=== PATIENT | female | born 1935 | race Caucasian/White ===

== ENCOUNTER → 2021-11-19 | Outpatient (CLI) | payer OTHER | LOC: RAD 13:24 | PROVIDERS: ATTEND Internal Medicine | DX: J44.9 Chronic obstructive pulmonary disease, unspecified (principal); I25.10 Atherosclerotic heart disease of native coronary artery without angina pectoris; R91.8 Other nonspecific abnormal finding of lung field; M41.34 Thoracogenic scoliosis, thoracic region ==

== ENCOUNTER 2021-12-16 15:33 | Emergency (ER) | payer OTHER ==
[~2021-12-16] VITALS: Ht 160 cm; Wt 56.7 kg
--- NOTE | ~2021-12-16 | EMS ---
[address] [address] EMS Patient Care Report Name: JACKIE HIGH Room #: DEP SHERINE Marshall#: [id number] Admission: 12/16/21 Attend Phys: Discharge: 12/16/21 Date of : 39 Report #: [id number] THIS REPORT FOR: //name// Report Transmitted: 12/18/2021 15:57 EMS Care Summary [place], [place]/[facility] Incident [id number] @ 12/16/2021 15:05 Incident Location [address] [place] [address] Patient JACKIE HIGH Female, 86 Years 1935 Patient Address [address] [place] [address] Patient History Chronic Obstructive Pulmonary Disease (COPD),Hypertension (HTN),None Reported, Patient Allergies No known allergies,Penicillin allergy, Patient Medications None Reported, Plavix, Chief Complaint Left upper arm Pain Disposition Transported No Lights/[place] Reason Falls Transported To [facility] Narrative Truck Captain on the scene stated they came to do a life assist after Pt slipped off her walker that rolls around and landed on the ground. Pt is not complaining of any pain at this time but is C/O pain in her left upper arm were [address] [address] EMS Patient Care Report Name: JACKIE HIGH Room #: DEP ER Rolando#: [id number] Admission: 12/16/21 Attend Phys: Discharge: 12/16/21 Date of : 39 Report #: [id number] she tripped over a rug landed on her left arm over a week ago. Pt stated she is having slight pain when she moves her arm or attempts to brain picker anything at all and rated her pain at a 2/10 that comes and goes. Pt is requesting transport to [facility] for further care , tx and evaluation of left upper arm pain were she injured a week ago. Pt is with no other complaints notd and is a GCS 15. Pt found sitting in a chair in her home with Truck 15 crew with Pt, Pt is with no signs of distress noted. Pt is post fall x 1 week and today she slide off her rolling walker seat and ended up on the ground and Pt is with no complaints noted from that injury. Pt is wanting transported to [facility] for evaluation of Left arm pain she has from a fall over a week ago and she is having pain when she lifts up something and moves it a certain way. Pt is with good ROM noted in left arm, good sensation , strong radial pulse and no deformity noted on inspection / palpation of area by EMS. Pt is a GCS 15 with no other complaint's noted by EMS on eval with Pt. Pt is transported to [facility] for further tx , care of left upper arm pain she hurt a week ago, no changes during transport and Pt received by RN in ER. Initial Vitals @15:25P: 74,R: 18,BP: 169/71,Pain: 2/10,GCS: 15,SpO2: 98,Revised Trauma: 12, @15:20P: 75,R: 18,BP: 185/74,Pain: 2/10,GCS: 15,SpO2: 98,Revised Trauma: 12, Assessments @15:12MENTAL:Person Oriented,Time Oriented,Place Oriented,Event Oriented,SKIN:HEENT:Head/Face: No Abnormalities,Neck/Airway: No Abnormalities,LUNG SOUNDS:General: No Abnormalities,ABDOMEN:General: No Abnormalities,PELVIS//GI:No Abnormalities,EXTREMITIES:Left Arm: Weakness,Left Arm: Other,Capillary Refill: Left Upper: < 2 Sec,Right Arm: No Abnormalities,Left Leg: No Abnormalities,Right Leg: No Abnormalities,PULSE:Radial: 2+ Normal,NEURO:@15:27MENTAL:Person Oriented,Place Oriented,Time Oriented,Event Oriented,SKIN:HEENT:Head/Face: No Abnormalities,Neck/Airway: No Abnormalities,LUNG SOUNDS:ABDOMEN:PELVIS//GI:No Abnormalities,EXTREMITIES:Left Arm: Weakness,Left Arm: Other,Capillary Refill: Left Upper: < 2 Sec,Right Arm: No Abnormalities,Left Leg: No Abnormalities,Right Leg: No Abnormalities,PULSE:Radial: 2+ Normal,NEURO:No Abnormalities, Impression Injury of Shoulder or Upper Arm Procedures @15:12 ALS Assessment Response: UnchangedSucceeded Timeline [address] [address] EMS Patient Care Report Name: ANILAJACKIE SUE Room #: DEP SHERINE Marshall#: [id number] Admission: 12/16/21 Attend Phys: Discharge: 12/16/21 Date of : 39 Report #: [id number] 14:53,Call Received 14:53,Dispatch Notified 15:05,Dispatched 15:06,En Route 15:08,On Scene 15:12,At Patient 15:12,ALS Assessment,Response: UnchangedSucceeded, 15:20,BP: 185/74 M,PULSE: 75,RR: 18 R,SPO2: 98 Ox,ETCO2: ,BG: ,PAIN: 2,GCS: 15, 15:25,BP: 169/71 M,PULSE: 74,RR: 18 R,SPO2: 98 Ox,ETCO2: ,BG: ,PAIN: 2,GCS: 15, 15:25,Depart Scene 15:28,At Destination 15:44,Call Closed Disclaimer v1.1 Copyright 2021 [employer] This EMS Care Summary contains data elements from the applicable legal record (which may be displayed differently). It is designed to provide pertinent information for the following purposes: continuity of care, clinical quality, and state data reporting. The complete legal record is available to ED staff and administrators of the receiving hospital in [employer]'s Patient Tracker. All data is provided "as is."
[2021-12-16 16:19] LABS: HEMATOCRIT 33.8 % (37.0-47.0); HEMOGLOBIN 9.9 gm/dL (12.0-15.0); MCH 20.8 pg (26.0-34.0); MCHC 29.3 g/dL (28.0-37.0); MCV 70.9 fL (80.0-100.0); PLATELET COUNT 216 thou/uL (150-400); RBC 4.76 mil/uL (4.20-5.00); RDW 18.1 % (10.5-14.5); WBC 5.5 thou/uL (4.0-11.0)
[2021-12-16 16:25] LABS: CALCIUM 9.2 mg/dL (8.5-10.1); CREATININE 0.9 mg/dL (0.6-1.0)
[2021-12-16 16:31] LABS: ALBUMIN 3.6 g/dL (3.4-5.0); TOTAL BILIRUBIN 0.4 mg/dL (0.2-1.0); TOTAL PROTEIN 6.4 g/dL (6.4-8.2)
[2021-12-16 16:34] LABS: INR 1.05; PROTIME 11.4 Seconds (10.5-12.1)
[2021-12-16 17:21] LABS: URINE BILIRUBIN NEGATIVE (Negative); URINE BLOOD NEGATIVE (Negative); URINE CLARITY CLEAR; URINE COLOR YELLOW; URINE GLUCOSE-RANDOM* NEGATIVE (Negative); URINE KETONES NEGATIVE (Negative); URINE NITRITE-REFLEX NEGATIVE (Negative); URINE PROTEIN (DIPSTICK) NEGATIVE (Negative); URINE UROBILINOGEN 0.2 E.U./dl (0.2-1.0)
--- NOTE | 2021-12-16 17:26 | EKG ---
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 12/16/21 1726 1556 1556 Ramirez Maurice MD, FACC /EPI
[2021-12-16 17:30] LABS: URINE LEUKOCYTES-REFLEX 1+ (Negative)
[2021-12-16 17:45] LABS: CASTS None Seen /LPF (None Seen); SQUAMOUS 4-10 Moderate /LPF (0-3)
[2021-12-16 17:46] LABS: BACTERIA-REFLEX 1-9 Few /HPF (None Seen); CRYSTALS None Seen /LPF (None Seen); URINE RBC 1-2 Rare /HPF (NONE SEEN); URINE WBC-REFLEX 6-15 Few /HPF (0-5)
[2021-12-16 18:12] LABS: ABSOLUTE NEUTROPHILS 3.5 thou/uL (1.4-8.2); ANISOCYTOSIS 2+; MACROCYTES 1+; MICROCYTES 2+
[2021-12-16 18:13] LABS: LARGE PLATELETS FEW; OVALOCYTES 1+
[2021-12-16] MEDS ORDERED: MACROBID 100 M100 MG PO (18:47)
[2021-12-16 19:12] VITALS: BP 191/72
== END 2021-12-16 19:15 | disposition home or self-care (01) ==
LOC: ER 15:33
PROVIDERS: Nurse Practitioner
DX: N39.0 Urinary tract infection, site not specified (principal); Z88.0 Allergy status to penicillin; W19.XXXA Unspecified fall, initial encounter; Y93.89 Activity, other specified; Y92.89 Other specified places as the place of occurrence of the external cause; Y99.8 Other external cause status

== ENCOUNTER → 2022-01-07 | Outpatient (CLI) | payer OTHER ==
[~2022-01-07] MED LIST: MACROBID 100 M100 MG PO
== END ==
LOC: RAD 14:22
PROVIDERS: ATTEND Internal Medicine
DX: J44.9 Chronic obstructive pulmonary disease, unspecified (principal); I70.0 Atherosclerosis of aorta; M19.011 Primary osteoarthritis, right shoulder; M51.34 Other intervertebral disc degeneration, thoracic region; M41.85 Other forms of scoliosis, thoracolumbar region

== ENCOUNTER → 2022-01-26 | Outpatient (CLI) | payer OTHER | LOC: CAT 01-20 15:05 | PROVIDERS: ATTEND Internal Medicine | DX: J43.9 Emphysema, unspecified (principal); R91.8 Other nonspecific abnormal finding of lung field; K76.9 Liver disease, unspecified; T14.8XXA Other injury of unspecified body region, initial encounter ==